=== PATIENT | male | born 1940 | race Caucasian/White ===

== ENCOUNTER → 2023-08-14 11:21 | Outpatient (REF) | payer OTHER, SELFPAY | LOC: RAD 11:21 | PROVIDERS: ATTENDING PHYSICIAN Family Medicine | DX: R06.02 Shortness of breath (principal) | CPT/HCPCS: 71046 ==

== ENCOUNTER → 2023-09-14 10:23 | Outpatient (REF) | payer OTHER, SELFPAY | LOC: RCS 10:23 | PROVIDERS: ATTENDING PHYSICIAN Family Medicine | DX: R06.02 Shortness of breath (principal); E78.00 Pure hypercholesterolemia, unspecified; I10 Essential (primary) hypertension; I63.59 Cerebral infarction due to unspecified occlusion or stenosis of other cerebral artery | CPT/HCPCS: 93306 ==

== ENCOUNTER → 2023-09-20 09:18 | Outpatient (REF) | payer OTHER, SELFPAY ==
[2023-09-20] MEDS: LEXISCAN 0.4 MG IV (11:26)
== END ==
LOC: RCS 09:18
PROVIDERS: ATTENDING PHYSICIAN Family Medicine
DX: R06.02 Shortness of breath (principal); E78.00 Pure hypercholesterolemia, unspecified; I10 Essential (primary) hypertension; I63.59 Cerebral infarction due to unspecified occlusion or stenosis of other cerebral artery
CPT/HCPCS: 78452; 93017; A9500; J2785

== ENCOUNTER 2024-09-17 15:19 | Emergency (ER) | payer OTHER, SELFPAY ==
[2024-09-17] VITALS (8 sets, daily range): BP systolic 112–145; BP diastolic 63–92; PULSE 69–91; BMI 25.3
[2024-09-17 15:50] LABS: Hematocrit 35.8 % (39.0-52.0); Hemoglobin 12.0 g/dL (13.0-18.0); Mean Corp Hgb Conc. 33.5 g/dL (33.0-37.0); Mean Corpuscular Volume 96.2 fL (80.0-94.0); Nucleated Red Blood Cells % 0 % (-); Platelet Count 475 10^3/uL (130-400); Red Cell Dist. Width 14.9 % (11.5-14.5)
[2024-09-17 16:03] LABS: ALT (SGPT) 12 U/L (0-50); AST (SGOT) 22 U/L (17-59); Albumin 3.2 g/dl (3.5-5.0); Alkaline Phosphatase 74 U/L (38-126); Blood Urea Nitrogen 18 mg/dl (9-20); Calcium 8.9 mg/dl (8.4-10.2); Carbon Dioxide 27 mmol/L (22-30); Chloride 106 mmol/L (98-107); Estimated Creatinine Clearance 52 ml/min; Glucose 119 mg/dl (70-99); Potassium 4.2 mmol/L (3.5-5.1); Sodium 138 mmol/L (135-145); Total Protein 6.3 g/dl (6.3-8.2); eGFR > 60.00
[2024-09-17 16:15] LABS: Troponin I < 0.012 ng/ml
--- NOTE | 2024-09-17 16:30 | ED.GENMED ---
History of Present Illness
General
Chief Complaint: Fainting/Passed Out
Time Seen by Provider: 09/17/24 15:40
History of Present Illness
History of Present Illness:
84-year-old male with history of hypertension, hyperlipidemia presenting after a near syncopal episode. Prior [place] the [place]. He was standing up and started to feel lightheaded. He sat down and asked for water and then slumped
to the side. Per sheet rock nailer at bedside, did not lose consciousness. Reports that he was just discharged from the hospital yesterday, [place], after patient had fallen and they were concerned that patient had had a heart attack. He notes that he
did not have any cardiac interventions at the time. He does note that he ate breakfast this morning. He is currently asymptomatic. Denies chest pain, difficulty breathing, abdominal pain, fever, focal weakness. He denies additional acute medical
complaints.
Past History
Past History
ED Past Medical History: Cancer (Prostate cancer), HTN, Hypercholesterolemia and Other (gout )
ED Past Surgical History: Other (Skin cancer removals)
Social History
Tobacco: Non-smoker
Alcohol: None
Drug: None
Personal:
Living: alone
Phy Exam
Physical Exam
Physical Exam:
General: Well-appearing, no clinical signs of dehydration, nontoxic and in no acute distress
HEENT: protecting airway
Neck: appears supple
CV: Normal heart rate, regular rhythm
Resp: No accessory muscle use, no increased work of breathing, lungs clear to auscultation bilaterally
Abd: Soft and non-distended, no tenderness to palpation
Extremities: No deformities, no swelling
Neuro: alert, no focal neurologic deficit
: deferred
Rectal: deferred
Psych: Normal affect
Skin: Intact
Course
Orders/Labs/Results
Orders:
Orders
09/17/24 15:23
Electrocardiogram (*1) Urgent
Reason for Study: Syncope
EKG- Treatment ONCE
09/17/24 15:39
CMP [Comprehensive Metabolic Panel] Urgent
Complete Blood Count/With Diff Urgent
Troponin I Urgent
09/17/24 16:09
Orthostatic VS- Treatment ONCE
0.9% Sodium Chloride 1000 ml [Nss] 1,000 ml IV BOLUS
Abnormal Lab Results
09/17/24
15:39
RBC 3.72 L 10^6/uL
(4.70-6.10)
Hgb 12.0 L g/dL
(13.0-18.0)
Hct 35.8 L %
(39.0-52.0)
MCV 96.2 H fL
(80.0-94.0)
MCH 32.3 H pg
(27.0-31.0)
RDW 14.9 H %
(11.5-14.5)
Plt Count 475 H 10^3/uL
(130-400)
Glucose 119 H mg/dl
(70-99)
Albumin 3.2 L g/dl
(3.5-5.0)
09/17/24 15:39
09/17/24 15:39
Vital Signs
Initial and Last Documented VS:
Initial Vital Signs
Temp Pulse Resp Pulse Ox
97.9 F 75 16 98
09/17/24 15:25 09/17/24 15:25 09/17/24 15:25 09/17/24 15:25
Last Documented Vital Signs
Temp Pulse Resp Pulse Ox
97.9 F 75 16 98
09/17/24 15:25 09/17/24 15:25 09/17/24 15:25 09/17/24 16:33
MDM/Problems Addressed
MDM/Problems Addressed:
84-year-old male with history of hypertension, hyperlipidemia presenting after near syncopal episode. Vital signs on arrival are normal
On exam patient is resting comfortably, no acute distress or discomfort. He is currently asymptomatic. Patient notes that symptoms started when he was standing, then went to seated position. Denies any fall or head injury. Do suspect possible
vasovagal component to symptoms. Recently hospitalized, deconditioned. He reports this is the first time he left his house since his discharge. No focal neurologic deficit on exam, without concern for central process. No prodromal occultly
breathing. EKG obtained, no ischemic, no arrhythmia. Without present concern for cardiac pathology. Patient afebrile, nontoxic without concern for systemic infection. Will treat patient with IV fluids, screen with laboratory analysis and obtain
orthostatics.
17:45 - Patient's labs are unremarkable. Orthostatics within normal limits. Patient notes that his medications were changed during recent hospital admission, lisinopril disontinued. Without present concern for medication cause to patient
symptoms. He remains asymptomatic. Feel stable for discharge with close outpatient primary care follow-up. Return precautions discussed and patient verbalized understanding
*Pulse Oximetry
SaO2: 98
Oxygen Mode of Delivery: Room air
Patient hypoxic: no
*EKG
Interpreted by ED Provider?: Yes
EKG Intrepretation Date: 09/17/24
EKG Intrepretation Time: 16:33
Interpretation: normal
Comparison EKG: no changes (11/19/21)
Heart Rate: 74
Rate: normal
Rhythm: sinus
[place]: normal axis
Interval: normal VA interval
QRS Pattern: normal QRS
Ischemia: no ischemia
*Critical Care Note
Total Time (30-74mins, 75-104mins- exclusive of procedures): Not Applicable
ED Attending Note
-
Portions of this chart may have been created with voice recognition software.� Occasional wrong word or��sound alike� substitutions may have occurred due to the inherent limitations of voice recognition software.
Discharge Plan
Departure
Prescriptions:
No Action
allopurinol 100 MG tablet
200 mg PO DAILY
atorvastatin 10 MG tablet
20 mg PO QPM
finasteride 5 MG tablet
5 mg PO DAILY
metronidazole-skin cleansr #23 [Rosadan] 1 EACH kit,cleanser and cream
1 ea TP PRN PRN (Reason: redness)
lisinopril 20 MG tablet
20 mg PO DAILY Qty: 30 0RF
aspirin 81 MG tablet,delayed release (DR/EC)
81 mg PO DAILY 0RF
Referrals:
Eddie Burnett MD [Family Provider, Family Practice]
Interventions
Interventions:
*Risk Screen - Suicide Last Done: 09/17/24 15:25
*General Assessment Last Done: 09/17/24 15:25
*Neglect/Abuse Screening Last Done: 09/17/24 15:25
*ED COVID-19 Vaccine History Last Done: 09/17/24 15:25
Discharge Date and Time
Print Language: MICRONESIAN
[2024-09-17] MEDS: NSS 1000 IV (17:15)
== END 2024-09-17 18:56 | disposition home or self-care (01) ==
LOC: EMR 15:19
PROVIDERS: Emergency Medicine; EMERGENCY PHYSICIAN Student in an Organized Health Care Education/Training Program; FAMILY PHYSICIAN Family Medicine
DX: R55 Syncope and collapse (principal); E78.00 Pure hypercholesterolemia, unspecified; I10 Essential (primary) hypertension; Z85.828 Personal history of other malignant neoplasm of skin
CPT/HCPCS: 96360; 99284; 80053; 84484; 85025; 93005

== ENCOUNTER → 2024-11-18 15:43 | Outpatient (REF) | payer OTHER, SELFPAY | LOC: RCS 15:43 | PROVIDERS: ATTENDING PHYSICIAN Internal Medicine Cardiovascular Disease; FAMILY PHYSICIAN Family Medicine | DX: I21.4 Non-ST elevation (NSTEMI) myocardial infarction (principal); R55 Syncope and collapse | CPT/HCPCS: 93306 ==

== ENCOUNTER → 2025-01-19 08:36 | Outpatient (REF) | payer OTHER, SELFPAY | LOC: RSP 08:36 | PROVIDERS: ATTENDING PHYSICIAN Family Medicine | DX: R06.02 Shortness of breath (principal) | CPT/HCPCS: 71046; 94010 ==